=== PATIENT | male | born 1950 | race Caucasian/White ===

== ENCOUNTER 2018-11-02 15:06 | Observation (INO) | payer MEDICARE, BC, SELFPAY ==
[2018-10-24 13:56] VITALS: BMI 28.2
[2018-11-01] VITALS (19 sets, daily range): BP systolic 129–177; BP diastolic 81–95; PULSE 63–86; RESP 9–24; TEMP 36.1–37.6; O2SAT 97–100; BMI 27.5
--- NOTE | 2018-11-01 | DI.RAD.S_ITS ---
PROCEDURE: XR KNEE LT 1TO2V INDICATIONS: TOTAL LEFT KNEE/POST OP TECHNIQUE: A 2 view(s) of the knee acquired. COMPARISON: None. FINDINGS: Bones: Patient is status post knee joint arthroplasty. Hardware components are in expected positions. Visualized bony structures are intact. Soft tissues: Overlying postoperative changes are noted. IMPRESSION: Left total knee arthroplasty, normal alignment. Dictated by: David García M.D. on 11/01/2018 at 17:08 Approved by: David García M.D. on 11/01/2018 at 17:08
--- NOTE | 2018-11-01 12:40 | PM.PREOP ---
Pre-operative Note Interval Note History & Physical reviewed/Exam performed by Physician: Yes Changes to H&P: No
--- NOTE | 2018-11-01 12:41 | PM.OP.1 ---
Operative Date/Time/Diagnoses Date of procedure: 11/01/18 Time of procedure: 16:15 Pre-op diagnosis: Left knee osteoarthritis Status post left knee ACL reconstruction Post-op diagnosis: same Procedure & Clinicians Procedure: Left knee arthroplasty Hardware left knee Same procedure as scheduled: Yes Indications: The patient presents today for total knee arthroplasty after failure of conservative treatment. The nature of the procedure including the risks and benefits, alternatives, postoperative course and expected outcome were discussed and all questions answered. Consent was obtained. Operative site confirmed and marked. Surgeon: Josué Armendariz Director Business Development: Yunior Booker Anesthesia Type: Spinal, Peripheral nerve block and Local Operative Notes Findings: Severe osteoarthritis. Both of the previous interference screws were removed. Closure Type: primary Specimen(s): none sent Prosthetic devices, grafts, tissues, transplants, or devices: [employer]y BCS: [xx] femoral component, [xx] tibial component, [xx] mm BCS polyethylene tray and [xx] mm round patella Procedure in detail: The patient was taken to the operative suite and placed under spinal anesthesia with an adductor nerve block. The patient was given prophylactic antibiotics prior to surgery. The patient was also given tranexamic acid, 1 g, just prior to surgery for postoperative hemostasis. The lateral knee was prepped and the joint injected with 20 mL of 1% Lidocaine with epinephrine. The knee was then prepped and draped in usual sterile fashion. The leg was exsanguinated with an Esmarch dressing and the tourniquet raised to 250 torr. A 15 cm anterior incision was made. Next a medial trivector arthrotomy was made. The extensor mechanism was marked to ensure accurate repair. Initial exposing dissection was carried out medially and laterally. The knee was then extended and the patellar thickness was measured and a cut made removing approximately 9 mm of bone. The patella was then sized and drilled. Some excess lateral bone was excised and the patellofemoral ligament released. The knee was then flexed and the intramedullary femoral guide ho placed. The distal femoral cut was made in 6 ? of valgus at the + 2 position. The femoral size was measured and the appropriate cutting block was then placed and the anterior, posterior and chamfer cuts made. The intramedullary tibial ho and cutting guide was placed. The guide was set to remove approximately 10 mm from the less affected lateral side. The proximal tibial cut was then made with an oscillating saw. All meniscus and bony debris was then removed. Flexion extension gaps were checked. The knee was mildly tight medially. This was corrected with a percutaneous release of the MCL along with normal soft tissue releases and osteophyte removal. The soft tissues were then injected with a combination of 20 mL of half percent Marcaine with epinephrine and 20 mL of Exparel. The trial components were then placed. The knee went easily into full extension and flexion beyond 120?. There was excellent medial- lateral balance throughout motion. Patellar tracking was excellent. The trial components were removed and the knee was cleansed with Pulsavac irrigation and dried. The final components were cemented in with high viscosity vacuum mixed bone cement with antibiotics. The knee was held in extension and the patellar clamp until the cement had adequately cured. The knee was irrigated and inspected for any further debris. The knee was then irrigated with dilute Betadine solution. The extensor mechanism was closed with 5 interrupted #1 Vicryl sutures in 90 degrees of flexion. The joint was then injected with a combination of 1 g of tranexamic acid and 20 mL of quarter percent Marcaine with epinephrine. The subcutaneous tissue was closed with 2-0 Vicryl. The skin was closed with herbert and surgical adhesive. An Aquacell dressing and Guru wrap were then applied. The patient tolerated the procedure well and was returned to recovery room in good condition. Complications: none Condition: stable Disposition: PACU Plan for aftercare: Postop vision
[2018-11-01] MEDS: LACTATED RINGERS 1,000 ML 42 ML IV ×2 (13:35→15:12)
--- NOTE | 2018-11-01 13:37 | SUR.PREOP ---
Surgical area clipped and then washed with Chlorhexedrine now.
[2018-11-01] MEDS: MIDAZOLAM 2 MG/2 ML VIAL IV (13:45)
[2018-11-01] MEDS: fentaNYL 100 MCG/2 ML INJ 50 MCG IV ×2 (13:45→13:48)
--- NOTE | 2018-11-01 14:04 | SUR.PREOP ---
Blue bag given to daughters who are at bedside after block.
[2018-11-01] MEDS: LIDOCAINE 1% W/EPI INJ 20 ML INJ (14:36)
[2018-11-01] MEDS: TRANEXAMIC ACID 1,000 MG VIAL 1000 MG IV (14:36)
--- NOTE | 2018-11-01 15:02 | SUR.OPER ---
Supine on padded OR bed. Pillow under head, arms secured on padded armboards <90 degree abduction. Safety belt across torso. Non-operative leg secured with tape over blanket over lower leg. Operative leg secured in DeMayo/Flip positioner. Foam padded brace at thigh of operative leg.
[2018-11-01] MEDS: TRANEXAMIC ACID INJ (15:20)
[2018-11-01] MEDS: [UNRECOGNIZED DRUG - OTHER] INJ (15:20)
[2018-11-01] MEDS: EPI INJ ×2 (15:20→15:22)
[2018-11-01] MEDS: BUPIVACAINE INJ ×2 (15:20→15:22)
[2018-11-01] MEDS: [UNRECOGNIZED DRUG - OTHER] INJ (15:22)
[2018-11-01] MEDS: BUPIVACAINE LIPOSOME INJ (15:22)
[2018-11-01] MEDS: SODIUM CHLORIDE IRRIG SOLUTION 250 ML, POVIDONE-IODINE SPONGE STICKS 1 APPLIC IRR (15:24)
--- NOTE | 2018-11-01 16:44 | SUR.PHASEI ---
1625 late entry to PACU, a&o, talking, denies pain/nausea, Dressing CDI, ice, elevation. 1630 c/o nausea (r/t neuro problem), HOB elevated, explained that it may need to be lowered if BP goes low. Quease-ease given, declines RX 1640 x-ray done, report called to floor. States that the nausea is unchanged, declines. Rx. No pain.
--- NOTE | 2018-11-01 17:02 | SUR.PHASEI ---
Addendum entered by Mariaelena Copeland R.N. 11/01/18 23:06: Bilateral SCD's on from time of admission. Original Note: 1652 to room 223, bed down and locked, call light within reach. Pt alert, joking around. denies pain. daughters present, had clothing bag already in the room. Resp unlabored, skin warm and dry. Stable. No questions from pt, staff, family.
[2018-11-01] MEDS: LACTATED RINGERS 1,000 ML 125 ML IV (18:53)
[2018-11-01] MEDS: ONDANSETRON 4 MG/2 ML INJ IV (18:59)
[2018-11-01] MEDS: OXYCODONE IR 5 MG TABLET PO (19:07)
[2018-11-01] MEDS: LOSARTAN 50 MG TABLET PO (20:51)
[2018-11-01] MEDS: PRAVASTATIN 20 MG TABLET 10 MG PO (20:51)
[2018-11-01] MEDS: ASPIRIN EC 81 MG TABLET PO (20:52)
[2018-11-01] MEDS: OXYCODONE IR 5 MG TABLET 10 MG PO (20:53)
--- NOTE | 2018-11-01 20:54 | PC.NURSE ---
SHIFT [id number] Report received from PACU, care assumed at 1755. Some nausea, no c/o pain. Pt. received nerve block (without Duramorph), decreased sensation below the knee. Painful sensation increasing throughout shift. Oxycodone 5mg given, without relief. Called Dr. Schaeffer about 2029, received order to increase oxycodone dose to 10mg, administer hydromorphone for breakthrough pain. Also discussed aspirin order, as pt. 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 Dr. Schaeffer acknowledged, but wished to keep the ASA order. Discussed with pt., verbalized understanding, willing to take med.
[2018-11-01] MEDS: CEFAZOLIN 2 GM/100 ML FROZ.PIGGY IV (21:01)
[2018-11-02] VITALS (9 sets, daily range): BP systolic 109–145; BP diastolic 76–85; PULSE 73–84; RESP 16–18; TEMP 36.9–37.7; O2SAT 96–98
[2018-11-02] MEDS: HYDROMORPHONE 0.5 MG INJ IV ×3 (01:23→06:20)
[2018-11-02] MEDS: LACTATED RINGERS 1,000 ML 125 ML IV (03:38)
--- NOTE | 2018-11-02 04:24 | PC.NURSE ---
NOC Note: Pt is having pain 7-8/10, given PRN Diluadid 0.5 mg IVP, bringing pain down to 5/10. Pt reports that oxycodone has been making him nauseated and he has no nausea after taking dilaudid. He reports better pain control with the dilaudid than with the 10 mg of oxycodone. Pt has recieved 2 doses of IVP diluadid so far this shift.
[2018-11-02] MEDS: CEFAZOLIN 2 GM/100 ML FROZ.PIGGY IV (06:13)
[2018-11-02 07:00] LABS: Hematocrit 40.4 % (41-53); Hemoglobin 13.8 g/dL (13.5-17.5)
[2018-11-02] MEDS: ACETAMINOPHEN 325 MG TABLET 650 MG PO ×2 (10:04→17:11)
[2018-11-02] MEDS: ASPIRIN EC 81 MG TABLET PO ×2 (10:05→21:34)
[2018-11-02] MEDS: HYDROMORPHONE 2 MG TABLET PO ×2 (10:05→14:36)
[2018-11-02] MEDS: IBUPROFEN 400 MG TABLET PO ×4 (10:06→21:33)
--- NOTE | 2018-11-02 10:08 | P.PN_ITS ---
Subjective Date Patient Seen: 11/02/18 Time Patient Seen: 10:06 Interval history: Pain is moderate to severe. Denies fever chills. No nausea vomiting. Patient does have some heartburn. He has been slow to mobilize. Is able to urinate on his own. Exam Vital Signs (past 8 hours): - 11/02/18 03:58 11/02/18 07:20 11/02/18 07:35 Temperature 99.2 F 99.0 F Pulse Rate 82 80 84 Respiratory Rate 16 16 18 Blood Pressure 122/78 145/85 H Pulse Oximetry 97 98 96 Fraction of Inspired Oxygen 21 Oxygen Delivery Method Room Air Oxygen Flow Rate 0 Narrative Exam Narrative: 68-year-old male resting comfortably in bed in no apparent di stress. Left knee dressing is clean, dry and intact. Left leg is warm and dry. Sensation grossly intact to light touch. Motor function is intact distally. Objective Labs Result Diagrams: 11/02/18 06:35 Labs: Laboratory Results - last 24 hr 11/02/18 06:35 Hgb 13.8 Hct 40.4 L Assessment & Plan Post-op Postoperative Procedures Operation Date: 11/01/18 15:00 Actual Procedures Side Surgeon p Total Knee Arthroplasty Left Josué Armendariz MD s Tibial screw Removal Left Josué Armendariz MD postop day 1. Mobilize with physical therapy. Work on pain control. Likely discharge home tomorrow. Quality VTE Deep Vein Thrombosis/Pulmonary Embolism Present on Admission: No
--- NOTE | 2018-11-02 10:37 | PT.IIE ---
Current Diagnoses Unilateral post-traumatic osteoarthritis, left knee (11/01/18) Surgery Performed Operation Date: 11/01/18 15:00 Actual Procedures p Total Knee Arthroplasty(Left) - Josué Armendariz MD s Tibial screw Removal(Left) - Josué Armendariz MD Surgical History (Last Updated 10/24/18 @ 14:13 by Domenica Fay, RN) History of faith hole surgery (Acute ~2011) Hx of appendectomy (Acute) Hx of bilateral inguinal hernia repair (Acute) Hx of right knee surgery (Acute) Medical History (Last Updated 10/24/18 @ 14:14 by Domenica Fay RN) Cerebral brain hemorrhage (Acute ~2011) ETOH abuse (Acute) HLD (hyperlipidemia) (Acute) HTN (hypertension) (Acute) Physical Therapy Inpatient Evaluation/Re-Eval M1 PT/OT-IP Prior Functional Status Start: 11/02/18 13:37 Freq: NEEDED Status: Active Protocol: Document 11/02/18 10:37 AB (Rec: 11/02/18 13:55 AB [id number]) Medical Review Prior Functional Status Medical History Reviewed Yes Communication able to make needs known Mobility and Gait pt stated that he is independent with all mobilities and ambulation without AD Social History Household Members children none Living Arrangements Apartment/Condo Number of Floors (Floors) One Floor Number of Stairs To Enter/Railing? no steps to enter Home Environment High Toilet Walk in Shower Home Equipment Four Wheel Walker Hand Held Shower Grab Bars Near Toilet Grab Bars In Shower Employment Status Retired Additional Social History Comment pt stated that he has his daughters to assist him at home M2 PT-IP Current Condition Start: 11/02/18 13:37 Freq: NEEDED Status: Active Protocol: Document 11/02/18 10:37 AB (Rec: 11/02/18 13:55 AB [id number]) Physical Therapy Current Condition Current Condition Evaluation Date 11/02/18 Treatment Diagnosis s/p L TKA; difficulty in walking Onset Date 11/01/18 Weight Bearing Status Weight Bearing Status Weight Bear as Tolerated M3 PT-IP Subjective Start: 11/02/18 13:37 Freq: NEEDED Status: Active Protocol: Document 11/02/18 10:37 AB (Rec: 11/02/18 13:55 AB [id number]) Subjective Physical Therapy Visit Type Type Initial Evaluation Visit Start Time 10:37 Visit Stop Time 11:07 Total Visit Minutes 30 Number of AUDIT LEAD Visits 0 Physical Therapy Visit Comments Patient Comments pt with NAC and was about to use the toilet. PT took over. Therapy Pain Assessment Pain When Pain Assessed At Rest Pain Present Pain Present Pain Reported Location Left Knee Intensity 10 Scale Used Numeric (1 - 10) Pain Management Techniques Apply Cold Re-positioning Timing of Activity with Medications M4 PT-IP Mobility and Gait Start: 11/02/18 13:37 Freq: NEEDED Status: Active Protocol: Document 11/02/18 10:37 AB (Rec: 11/02/18 13:55 AB [id number]) PT-Transfer Assessment Sit to and From Stand Sit to and from Stand Moderate Assistance 1 Person Assistance Use of Upper Extremities Equipment Transfer Assistive Device Bed Rail Front Wheeled Walker Orthotic/Prosthetic Devices or Brace: No Transfers Transfer Destination Chair Toilet Transfer Technique pt ambulated using FWW Transfer Ability Level of Assist Moderate Assistance Maximum Assistance 1 Person Assistance Use of Upper Extremities Comments Mobility Comments pt completed sit to stand mod A and cues. pt ambulated using FWW ~ 10 ft mod to max A and max cues. pt tends to not use LLE during ambulation and also tends to slightly buckle. pt directs his own care and stated that his leg is not ready for weight bearing. pt was able to maintain standing using FWW for support mod A while using the toilet. pt ambulated out of the toilet using FWW mod A and cues to the chair. pt refused to do bed mobility and stated that he just wants to sit on the chair. pt stated that he had h/o CVA and usually has dizziness and needs time to rest. positioned pt on the chair. educated on importance of L knee ROM and quads exercises. left pt with call light and table within reach. ice pack provided. Gait Assessment Gait Gait Assistance Required: Moderate Assistance 1 Person Assist Distance (Feet) 10 Able to Maintain Weight Bearing Status Yes During Gait Assistive Devices Assistive Device Gait Belt Front Wheeled Walker Orthotic/Prosthetic Devices or Brace: No Gait Deviations General Gait Pattern Antalgic Decreased Stride Length Decreased Feet Clearance Step-to Gait Factors Limiting Gait Function Factors Limiting Gait Function Decreased Activity Tolerance Decreased Strength Limited Range of Motion Pain Comments Gait Comments pt ambulated using FWW 10 ft + 8 ft mod A and max cues. pt tends not to put weight on LLE during mobiltiy. presents with antalgic gait. PT-Balance Assessment Sitting Balance and Reactions Static Sitting Balance Ability Good Dynamic Sitting Balance Ability Good Standing Balance and Reactions Static Standing Balance Ability Poor Dynamic Standing Balance Ability Poor Device Used FWW M5 PT-IP Objective Assessments Start: 11/02/18 13:37 Freq: NEEDED Status: Active Protocol: Document 11/02/18 10:37 AB (Rec: 11/02/18 13:55 AB [id number]) Orientation Orientation/Cognition Level of Alertness Alert Orientation Name Place Situation Safety Awareness Decreased Safety Awareness Memory Description Short Term Impaired Gross Range of Motion Lower Extremity ROM Assessment Left Impaired Impairments L knee flexion: ~ 40 deg L knee extension: lacking ~ 30 deg to 0 Strength Lower Extremity Strength Assessment Left Impaired Hip 3-/5 Knee 2+/5 Coordination Assessment Gross Coordination Gross Coordination WNL Muscle Tone Muscle Tone WNL Yes M6 PT-IP Treatment Start: 11/02/18 13:37 Freq: NEEDED Status: Active Protocol: Document 11/02/18 10:37 AB (Rec: 11/02/18 13:55 AB [id number]) Physical Therapy Treatment Exercises Exercises Quad Sets Education Education Provided Precautions Weight Bearing Status Post-Op Packet Safety M7 PT-IP Assessment and Plan Start: 11/02/18 13:37 Freq: NEEDED Status: Active Protocol: Document 11/02/18 10:37 AB (Rec: 11/02/18 13:55 AB [id number]) PT Summary Assessment and Plan Potential Rehabilitation Potential Fair Status of Condition at Evaluation Evolving Summary Impairments Pain ROM Strength Balance Coordination Sensation Tone Cognition Bed Mobility Transfers Gait Activity Tolerance Assessment Summary pt requiring mod A with mobility and unable to tolerate much activity. d/c plan depending on progress. pt stated that her daughters will be able to assist him. caregiver training will be conducted when appropriate. pt also having increase L knee pain affecting mobility. will need further assessment of progress to determine safe d/c plan but at this time, may require SNF rehab. Goals Bed Mobility Goal Standby Assistance Transfer Goal Standby Assistance Front Wheeled Walker Gait Goal Standby Assistance Front Wheel Walker Gait Distance 200 Days to Meet Goals 5 Frequency of Treatment Frequency Of Treatment Twice a Day Treatment Plan Physical Therapy Treatment Plan Bed Mobility Training Transfer Training Gait Training Therapeutic Exercise Balance Retraining Post Op Education Discharge Planning Hot or Cold Pack Neuromuscular Re-ed Coordination Retraining Manual Therapy Other Recommendations and Next Treatment LE strengthening, bed mobility Focus , ambulation, caregiver training Recommendations To Nursing Amount of Assist Needed 1 Person Assist Discharge Recommendations PT Discharge Recommendations Home with 24/7 Assist Home Health SNF Rehab Other Discharge Recommendations depending on progress: SNF vs home with 24/7 and homehealth or outpt PT Equipment Needed for Home Before FWW if not safe with 4WW Discharge
--- NOTE | 2018-11-02 13:04 | CM.IDA ---
Initial DCP assessment Note: Pt is a 68 yo male, resident of [place]. Pt here under obs, POD#1 from Left knee surgery w/ Dr Armendariz. PCP: Unknown Payer: Medicare/[facility] [place]. Met w/pt briefly this morning, PT Tierney finishing her initial eval upon this CHEMICAL LIBRARIAN's arrival. Pt seemingly overwhelmed, states things did not go well and it was the first time he got up since surgery, pt admits to pain, no use of quads (using only upper body) and knee buckling on his left side. PT Tierney suggests a b/u plan if pt unable to return home and pt says he will go home when I'm ready. Explained SW role for pt and asked if he'd had visitors this morning? Pt says his dtrs will be arriving from [place] but that he's had a string of people coming in and out all morning long. This CHEMICAL LIBRARIAN will return later or possibly Tuesday morning to review PT recommendations and DCP options w/pt. Ortho PA expects DC home Tuesday. HEIDY Alvarez Discharge Planning/Care Management CM Discharge Assessment Start: 11/02/18 13:02 Freq: Status: Active Protocol: Document 11/02/18 13:02 SAGAR (Rec: 11/02/18 13:04 SAGAR [id number]) Discharge Planning Assessment Assigned Boot And Saddle Repair Person HEIDY Ontiveros DPOA/Assigned Designee Name [employer] dtr Contact Information [phone] Advance Directives? No: Declines further information History Provided By Patient Prior Living Arrangements Apartment/Condo Household Members none Independent with ADL's Yes Is patient alert and oriented? Yes Barriers to Discharge Yes Comment Pain, weakness, POD#1 Whiteboard Updated in Patient Room with Yes name and ext. # of Boot And Saddle Repair Person Review Status In Process
--- NOTE | 2018-11-02 14:00 | PT.IPTN ---
Current Diagnoses Unilateral post-traumatic osteoarthritis, left knee (11/01/18) Surgery Performed Operation Date: 11/01/18 15:00 Actual Procedures p Total Knee Arthroplasty(Left) - Josué Armendariz MD s Tibial screw Removal(Left) - Josué Armendariz MD Physical Therapy Treatment Note M2 PT-IP Current Condition Start: 11/02/18 13:37 Freq: NEEDED Status: Active Protocol: Document 11/02/18 10:37 AB (Rec: 11/02/18 13:55 AB [id number]) Physical Therapy Current Condition Current Condition Evaluation Date 11/02/18 Treatment Diagnosis s/p L TKA; difficulty in walking Onset Date 11/01/18 Weight Bearing Status Weight Bearing Status Weight Bear as Tolerated M3 PT-IP Subjective Start: 11/02/18 13:37 Freq: NEEDED Status: Active Protocol: Document 11/02/18 14:00 AB (Rec: 11/02/18 16:47 AB [id number]) Subjective Physical Therapy Visit Type Type Treatment Note Visit Start Time 14:00 Visit Stop Time 14:27 Total Visit Minutes 27 Number of SENIOR FIELD SERVICE ENGINEER Visits 0 Physical Therapy Visit Comments Patient Comments pt agreeable to do PT Therapy Pain Assessment Pain When Pain Assessed At Rest Pain Present Pain Present Pain Reported Location Left Knee Intensity 7 Scale Used Numeric (1 - 10) Pain Management Techniques Apply Cold Re-positioning Timing of Activity with Medications M4 PT-IP Mobility and Gait Start: 11/02/18 13:37 Freq: NEEDED Status: Active Protocol: Document 11/02/18 14:00 AB (Rec: 11/02/18 16:47 AB [id number]) PT-Bed Mobility Assessment Supine to Sit Supine to Sit Minimal Assistance PT-Transfer Assessment Sit to and From Stand Sit to and from Stand Minimal Assistance 1 Person Assistance Use of Upper Extremities Comments Mobility Comments pt completed heel slides on LLE prior to getting up. pt completed supine to sit min A with LE. pt agreed to ambulate and completed. pt requested to sit up on chair after ambulation. assisted with positioning. call light and table placed within reach. Gait Assessment Gait Gait Assistance Required: Minimum Assistance Moderate Assistance Distance (Feet) 30 Able to Maintain Weight Bearing Status Yes During Gait Assistive Devices Assistive Device Gait Belt Front Wheeled Walker Orthotic/Prosthetic Devices or Brace: No Gait Deviations General Gait Pattern Antalgic Decreased Stride Length Decreased Feet Clearance Step-to Gait Factors Limiting Gait Function Factors Limiting Gait Function Decreased Activity Tolerance Decreased Strength Limited Range of Motion Pain Poor Balance Poor Safety Awareness Comments Gait Comments pt completed ambulation using FWW min A 30 ft. requires cues to activate L quads and requires assist to stabilize L knee. c/o increase pain with mobility. pt continues to present with unsteady gait with decrease weight bearing on L knee but able to tolerate more weight this afternoon compared to this morning. M5 PT-IP Objective Assessments Start: 11/02/18 13:37 Freq: NEEDED Status: Active Protocol: Document 11/02/18 10:37 AB (Rec: 11/02/18 13:55 AB [id number]) Orientation Orientation/Cognition Level of Alertness Alert Orientation Name Place Situation Safety Awareness Decreased Safety Awareness Memory Description Short Term Impaired Gross Range of Motion Lower Extremity ROM Assessment Left Impaired Impairments L knee flexion: ~ 40 deg L knee extension: lacking ~ 30 deg to 0 Strength Lower Extremity Strength Assessment Left Impaired Hip 3-/5 Knee 2+/5 Coordination Assessment Gross Coordination Gross Coordination WNL Muscle Tone Muscle Tone WNL Yes M6 PT-IP Treatment Start: 11/02/18 13:37 Freq: NEEDED Status: Active Protocol: Document 11/02/18 14:00 AB (Rec: 11/02/18 16:47 AB [id number]) Physical Therapy Treatment Exercises Exercises Quad Sets Heel Slides Education Education Provided Precautions Safety M7 PT-IP Assessment and Plan Start: 11/02/18 13:37 Freq: NEEDED Status: Active Protocol: Document 11/02/18 14:00 AB (Rec: 11/02/18 16:47 AB [id number]) PT Summary Assessment and Plan Potential Rehabilitation Potential Fair Summary Impairments Pain ROM Strength Balance Coordination Sensation Tone Cognition Bed Mobility Transfers Gait Activity Tolerance Progress Towards Goals Slow Progress due to Pain Slow Progress due to Activity Tolerance Assessment Summary pt requiring min to mod A with mobility. c/o increase L knee pain with movement affecting function. caregiver training set up for ~ 1100 am tomorrow. pt set up the time for his daughter to come in. will complete caregiver training and if pt's daughter is able to provide appropriate assistance, pt may go home when medically stable. will continue to assess. Goals Bed Mobility Goal Standby Assistance Transfer Goal Standby Assistance Front Wheeled Walker Gait Goal Standby Assistance Front Wheel Walker Gait Distance 200 Days to Meet Goals 5 Frequency of Treatment Frequency Of Treatment Twice a Day Treatment Plan Physical Therapy Treatment Plan Bed Mobility Training Transfer Training Gait Training Therapeutic Exercise Balance Retraining Post Op Education Discharge Planning Hot or Cold Pack Neuromuscular Re-ed Coordination Retraining Manual Therapy Other Recommendations and Next Treatment LE strengthening, bed mobility Focus , ambulation, caregiver training Recommendations To Nursing Amount of Assist Needed 1 Person Assist Discharge Recommendations PT Discharge Recommendations Home with 24/7 Assist Home Health SNF Rehab Other Discharge Recommendations depending on progress: SNF vs home with 24/7 and homehealth or outpt PT Equipment Needed for Home Before FWW if not safe with 4WW Discharge
--- NOTE | 2018-11-02 18:27 | PC.NURSE ---
Addendum entered by Cyndi Arreaga R.N. 11/02/18 22:05: Resting at intervals through evening. Satisfactory post op course. Dsg remains CDI. Call light w/in reach. Pt calls appropriately for needs. Continue w/plan of care. Original Note: Pt sitting in chair. Denied discomfort at this time. Lungs clear, SpO2 98% RA Guru wrap Dsg to left knee CDI. Call light w/in reach, bed alarm on for pt safety. Stable post op course.
[2018-11-02] MEDS: LOSARTAN 50 MG TABLET PO (21:34)
[2018-11-02] MEDS: PRAVASTATIN 20 MG TABLET 10 MG PO (21:34)
[2018-11-02] MEDS: PANTOPRAZOLE 20 MG TABLET PO (22:10)
[2018-11-03] MEDS: ACETAMINOPHEN 325 MG TABLET 650 MG PO ×2 (01:02→06:01)
[2018-11-03] MEDS: IBUPROFEN 400 MG TABLET PO ×3 (01:03→09:04)
--- NOTE | 2018-11-03 05:29 | PC.NURSE ---
Director Behavioral Health Summary s/p L TKA on 11/01. Pain well managed on scheduled ibu/tylenol. Refuses SCDs; per report pt is active and getting out of bed frequently throughout the day. Clustered care to promote rest. VSS, SaO2 97% on RA. Aquacel dressing beneath compression wrap CDI.
[2018-11-03] MEDS: PANTOPRAZOLE 20 MG TABLET PO (06:00)
[2018-11-03 06:06] VITALS: BP 135/73; PULSE 80; RESP 18; TEMP 36.9; O2SAT 96
[2018-11-03 07:55] VITALS: BP 144/79; PULSE 75; RESP 18; TEMP 36.9; O2SAT 99
[2018-11-03] MEDS: ASPIRIN EC 81 MG TABLET PO (09:04)
--- NOTE | 2018-11-03 09:28 | PM.DS.1 ---
History of Present Illness Date Patient Seen: 11/03/18 Time Patient Seen: 09:28 Chief complaint: [id number] Narrative: Hospital day 3, postop day 2 following left total knee arthroplasty by Dr. Armendariz. Patient remained stable. Has noted some increase in left thigh and knee area pain. Thigh pain is in area of tourniquet placement. He is a [facility] and has prescription at home for oxycodone which he states makes him sick. He has been getting Dilaudid which has been helpful. He is scheduled to go to [facility] in [place]. He does have 2 daughters and a son that will be rotating to help take care of him. Discharge Providers Date of admission: 11/01/18 12:22 Discharge Date: 11/03/18 Consults: 11/01/18 17:40 Consult to Discharge Planning Routine Comment: Consult to Physical Therapy Evaluate & Treat Comment: Physician Instructions: postop TKA protocol Consult to Respiratory Therapy Evaluate & Treat Comment: Physician Instructions: Evaluate and treat Discharge provider: Som Junior PA-C Summary Discharge Diagnosis: Status post left total knee arthroplasty Hospital Course: Patient brought to hospital on 11/01/2018 for above-noted surgery. He has remained stable postoperatively. Progressed slowly with PT. Ready for discharge home on postop day 2. Status at Discharge Cognitive/behavioral status at discharge: oriented Functional status at discharge: uses cane/walker Overall status at discharge: patient is progressing back to baseline Time Spent with Patient Less than 30 minutes Exam Vital Signs (past 8 hours): - 11/03/18 06:06 11/03/18 07:55 Temperature 98.5 F 98.5 F Pulse Rate 80 75 Respiratory Rate 18 18 Blood Pressure 135/73 144/79 H Pulse Oximetry 96 99 Fraction of Inspired Oxygen 21 Oxygen Delivery Method Room Air Oxygen Flow Rate 0 Narrative Exam Narrative: Alert, oriented no acute distress resting in chair. Legs. There is some tenderness and induration of left thigh in the area of tourniquet placement. No inflammation noted. Mild swelling of left knee and lower leg. Calf is soft and nontender. Good pulses distally. Guru wrap and Aquacel dressing the left knee are dry without drainage or inflammation. Objective Labs Result Diagrams: 11/02/18 06:35 Discharge Plan Discharge Plan Patient Disposition: Home Discharge comment: Discharge home today after cleared by PT. Patient is thus with path patient. Given prescription for Dilaudid 2 mg. He is scheduled to go to [facility] in [place]. He will take aspirin 81 mg 1 b.i.d. times 30 days postop. Discharge Med Rec/Prescriptions Prescriptions: New acetaminophen 325 mg Tablet 650 mg PO Q6HR Qty: 30 RF: 0 aspirin 81 mg Tablet,Delayed Release (Dr/Ec) 81 mg PO BID Qty: 60 RF: 0 hydromorphone 2 mg Tablet 2 mg PO Q3H PRN (Reason: Pain, Severe (7-10)) Qty: 30 RF: 0 ibuprofen 400 mg Tablet 400 mg PO Q4HR Qty: 30 RF: 0 hydroxyzine pamoate 25 mg Capsule 25 mg PO Q6HR PRN (Reason: Nausea) Qty: 20 RF: 0 Continued losartan 50 mg Tablet 50 mg PO BEDTIME RF: 0 pravastatin 10 mg Tablet 10 mg PO BEDTIME RF: 0 multivitamin 1 tab PO DAILY RF: 0 Provider Discharge Instructions Diet: Diet as Tolerated Activity: Ambulate as tolerated. Use walker as needed. Left knee ROM as much as possible. Elevate left leg as needed. Cold/Heat Therapy: Cold pack to left knee as needed. Skin/Wound/Dressing Care Report to your healthcare provider any signs of infection, such as:: chills, fever, night sweats, increased pain, unusual drainage and unusual redness Visit Report/Discharge Packet Instructions: DI for Knee Replacement Discharge Data Attending Provider: Josué Armendariz Admit Date/Time: 11/01/18 12:22 Quality VTE Deep Vein Thrombosis/Pulmonary Embolism Present on Admission: No
--- NOTE | 2018-11-03 09:31 | P.DS_ITS ---
History of Present Illness Date Patient Seen: 11/03/18 Time Patient Seen: 09:28 Chief complaint: [id number] Narrative: Hospital day 3, postop day 2 following left total knee arthroplasty by Dr. Armendariz. Patient remained stable. Has noted some increase in left thigh and knee area pain. Thigh pain is in area of tourniquet placement. He is a [facility] patient and has prescription at home for oxycodone which he states makes him sick. He has been getting Dilaudid which has been helpful. He is scheduled to go to [facility] PT in [place]. He does have 2 daughters and a son that will be rotating to help take care of him. Discharge Providers Date of admission: 11/01/18 12:22 Discharge Date: 11/03/18 Consults: 11/01/18 17:40 Consult to Discharge Planning Routine Comment: Consult to Physical Therapy Evaluate & Treat Comment: Physician Instructions: postop TKA protocol Consult to Respiratory Therapy Evaluate & Treat Comment: Physician Instructions: Evaluate and treat Discharge provider: Som Junior PA-C Summary Discharge Diagnosis: Status post left total knee arthroplasty Hospital Course: Patient brought to hospital on 11/01/2018 for above-noted surgery. He has remained stable postoperatively. Progressed slowly with PT. Ready for discharge home on postop day 2. Status at Discharge Cognitive/behavioral status at discharge: oriented Functional status at discharge: uses cane/walker Overall status at discharge: patient is progressing back to baseline Time Spent with Patient Less than 30 minutes Exam Vital Signs (past 8 hours): - 11/03/18 06:06 11/03/18 07:55 Temperature 98.5 F 98.5 F Pulse Rate 80 75 Respiratory Rate 18 18 Blood Pressure 135/73 144/79 H Pulse Oximetry 96 99 Fraction of Inspired Oxygen 21 Oxygen Delivery Method Room Air Oxygen Flow Rate 0 Narrative Exam Narrative: Alert, oriented no acute distress resting in chair. Legs. There is some tenderness and induration of left thigh in the area of tourniquet placement. No inflammation noted. Mild swelling of left knee and lower leg. Calf is soft and nontender. Good pulses distally. Guru wrap and Aquacel dressing the left knee are dry without drainage or inflammation. Objective Labs Result Diagrams: 11/02/18 06:35 Discharge Plan Discharge Plan Patient Disposition: Home Discharge comment: Discharge home today after cleared by PT. Patient is thus with path patient. Given prescription for Dilaudid 2 mg. He is scheduled to go to [facility] in [place]. He will take aspirin 81 mg 1 b.i.d. times 30 days postop. Discharge Med Rec/Prescriptions Prescriptions: New acetaminophen 325 mg Tablet 650 mg PO Q6HR Qty: 30 RF: 0 aspirin 81 mg Tablet,Delayed Release (Dr/Ec) 81 mg PO BID Qty: 60 RF: 0 hydromorphone 2 mg Tablet 2 mg PO Q3H PRN (Reason: Pain, Severe (7-10)) Qty: 30 RF: 0 ibuprofen 400 mg Tablet 400 mg PO Q4HR Qty: 30 RF: 0 hydroxyzine pamoate 25 mg Capsule 25 mg PO Q6HR PRN (Reason: Nausea) Qty: 20 RF: 0 Continued losartan 50 mg Tablet 50 mg PO BEDTIME RF: 0 pravastatin 10 mg Tablet 10 mg PO BEDTIME RF: 0 multivitamin 1 tab PO DAILY RF: 0 Provider Discharge Instructions Diet: Diet as Tolerated Activity: Ambulate as tolerated. Use walker as needed. Left knee ROM as much as possible. Elevate left leg as needed. Cold/Heat Therapy: Cold pack to left knee as needed. Skin/Wound/Dressing Care Report to your healthcare provider any signs of infection, such as:: chills, f ever, night sweats, increased pain, unusual drainage and unusual redness Visit Report/Discharge Packet Instructions: DI for Knee Replacement Discharge Data Attending Provider: Josué Armendariz Admit Date/Time: 11/01/18 12:22 Quality VTE Deep Vein Thrombosis/Pulmonary Embolism Present on Admission: No
--- NOTE | 2018-11-03 11:00 | PT.IPTN ---
Current Diagnoses Unilateral post-traumatic osteoarthritis, left knee (11/01/18) Surgery Performed Operation Date: 11/01/18 15:00 Actual Procedures p Total Knee Arthroplasty(Left) - Josué Armendariz MD s Tibial screw Removal(Left) - Josué Armendariz MD Physical Therapy Treatment Note M2 PT-IP Current Condition Start: 11/02/18 13:37 Freq: NEEDED Status: Active Protocol: Document 11/02/18 10:37 AB (Rec: 11/02/18 13:55 AB [id number]) Physical Therapy Current Condition Current Condition Evaluation Date 11/02/18 Treatment Diagnosis s/p L TKA; difficulty in walking Onset Date 11/01/18 Weight Bearing Status Weight Bearing Status Weight Bear as Tolerated M3 PT-IP Subjective Start: 11/02/18 13:37 Freq: NEEDED Status: Active Protocol: Document 11/03/18 11:00 AB (Rec: 11/03/18 11:45 AB [id number]) Subjective Physical Therapy Visit Type Type Treatment Note Visit Start Time 11:00 Visit Stop Time 11:31 Total Visit Minutes 31 Number of GATE TENDER Visits 0 Physical Therapy Visit Comments Patient Comments pt agreeable to do PT. daughter present for caregiver training Therapy Pain Assessment Pain When Pain Assessed At Rest Pain Present Pain Present Pain Reported Location Left Knee Intensity 5 Scale Used Numeric (1 - 10) Pain Management Techniques Apply Cold Re-positioning Timing of Activity with Medications M4 PT-IP Mobility and Gait Start: 11/02/18 13:37 Freq: NEEDED Status: Active Protocol: Document 11/03/18 11:00 AB (Rec: 11/03/18 11:45 AB [id number]) PT-Bed Mobility Assessment Supine to Sit Supine to Sit Standby Assistance PT-Transfer Assessment Sit to and From Stand Sit to and from Stand Standby Assistance Contact Guard Assistance Equipment Transfer Assistive Device Gait Belt Front Wheeled Walker Orthotic/Prosthetic Devices or Brace: No Transfers Transfer Destination Bed Transfer Technique Stand Step Pivot Transfer Ability Level of Assist Standby Assistance Contact Guard Assistance Comments Mobility Comments caregiver training conducted. educated pt's daughter on how to use safety belt and how to assist pt. pt's daughter was able to put safety belt on and assist pt with transfer and ambulation. Gait Assessment Gait Gait Assistance Required: Standby Assistance Contact Guard Assist Distance (Feet) 90 Able to Maintain Weight Bearing Status Yes During Gait Assistive Devices Assistive Device Gait Belt Front Wheeled Walker Orthotic/Prosthetic Devices or Brace: No Gait Deviations General Gait Pattern Antalgic Decreased Stride Length Decreased Feet Clearance Step-to Gait Factors Limiting Gait Function Factors Limiting Gait Function Decreased Activity Tolerance Decreased Strength Limited Range of Motion Pain Poor Balance Poor Safety Awareness Comments Gait Comments pt doing better with ambulation today but still continues to use a lot of UE on FWW for support. recommending use of FWW at this time. pt and pt's daughter agreed and daughter called DME placed and stated that she was able to borrow a FWW and a shower chair. M5 PT-IP Objective Assessments Start: 11/02/18 13:37 Freq: NEEDED Status: Active Protocol: Document 11/02/18 10:37 AB (Rec: 11/02/18 13:55 AB [id number]) Orientation Orientation/Cognition Level of Alertness Alert Orientation Name Place Situation Safety Awareness Decreased Safety Awareness Memory Description Short Term Impaired Gross Range of Motion Lower Extremity ROM Assessment Left Impaired Impairments L knee flexion: ~ 40 deg L knee extension: lacking ~ 30 deg to 0 Strength Lower Extremity Strength Assessment Left Impaired Hip 3-/5 Knee 2+/5 Coordination Assessment Gross Coordination Gross Coordination WNL Muscle Tone Muscle Tone WNL Yes M6 PT-IP Treatment Start: 11/02/18 13:37 Freq: NEEDED Status: Active Protocol: Document 11/03/18 11:00 AB (Rec: 11/03/18 11:45 AB [id number]) Physical Therapy Treatment Education Education Provided Precautions Safety Other Treatments Other Treatment Performed educated pt's daughter on pt's HEP M7 PT-IP Assessment and Plan Start: 11/02/18 13:37 Freq: NEEDED Status: Active Protocol: Document 11/03/18 11:00 AB (Rec: 11/03/18 11:45 AB [id number]) PT Summary Assessment and Plan Potential Rehabilitation Potential Good Summary Impairments Pain ROM Strength Balance Cognition Bed Mobility Transfers Gait Activity Tolerance Progress Towards Goals Slow Progress due to Pain Assessment Summary caregiver training conducted and pt's daughter was able to safely assist pt with bed mobility, transfers and ambulation. pt plans to go home today. Goals Bed Mobility Goal Standby Assistance Transfer Goal Standby Assistance Front Wheeled Walker Gait Goal Standby Assistance Front Wheel Walker Gait Distance 200 Days to Meet Goals 5 Frequency of Treatment Frequency Of Treatment Twice a Day Treatment Plan Physical Therapy Treatment Plan Bed Mobility Training Transfer Training Gait Training Therapeutic Exercise Balance Retraining Post Op Education Discharge Planning Hot or Cold Pack Neuromuscular Re-ed Coordination Retraining Manual Therapy Other Recommendations and Next Treatment LE strengthening, bed mobility Focus , ambulation, caregiver training Recommendations To Nursing Amount of Assist Needed 1 Person Assist Discharge Recommendations PT Discharge Recommendations Home with Assistance Outpatient PT
--- NOTE | 2018-11-03 11:58 | PC.NURSE ---
Pt unsteady on his feet, Uses walker improperly. Talked to pt and they will work with him again. L.knee dressing is aquacel that is cdi. Pt does not take narcotics, he has been taking tylenol and Ibuprofen and seems to be taking care of his discomfort. Using urinal to void. He is going to be discharged to home soon.
--- NOTE | 2018-11-03 13:44 | CM.DPNOTE ---
Addendum entered by Nhung Godwin HEIDY 11/03/18 14:15: Correction: Pt left under observation status, this CEMENT BREAKER began to review IMM, stopped, and explained to pt that under observation IMM does not apply, pt had [facility] form reviewed by MELODY Mulligan RN. Original Note: DC Note: Met w/pt this morning, IMM reviewed and signed. Pt understands DC order has now been placed and pt feels much better today than he did yesterday. Pt's dtrs/family will be coming tis afternoon and will transport him home. Pt further explains he will not be alone once home, family and friends will be assisting. Therapy team has cleared pt for return home today. No additional SW needs identified. SAGAR
== END 2018-11-03 12:45 | disposition home or self-care (01) ==
LOC: AC 11-03 10:36 → OR 11-03 13:20 → AC 11-03 13:22
PROVIDERS: Admitting Provider Orthopaedic Surgery; Visit Provider Orthopaedic Surgery
PROC: 0SRD0JZ Replacement of Left Knee Joint with Synthetic Substitute, Open Approach (ICD-10-PCS; CPT 27447; principal; 2018-11-01 15:00)
PROC: (CPT 27447; 2018-11-01 15:00)
DX: M17.32 Unilateral post-traumatic osteoarthritis, left knee (principal); G89.18 Other acute postprocedural pain; I10 Essential (primary) hypertension; I69.354 Hemiplegia and hemiparesis following cerebral infarction affecting left non-dominant side
CPT/HCPCS: 27447; 36415; 64447; 64450; 73560; 85014; 85018; 94760; 97116; 97162; 97530; C1776; G0378; C9290; J0690; J1170; J2250; J2405; J2704; J3010